=== PATIENT | female | born 1990 | race Caucasian/White ===

== ENCOUNTER 2017-02-21 16:04 | Emergency (ER) | payer MEDICAID ==
[~2017-02-21] VITALS: Ht 170.2 cm; Wt 56.5 kg
[2017-02-21 16:07] VITALS: Ht 170.2 cm; Wt 56.5 kg
[2017-02-21] MEDS ORDERED: ACETAMINOPHEN 500 MG TAB PO STA (17:31)
--- NOTE | 2017-02-21 18:08 | RADRPT ---
PROCEDURE: XR Chest. CLINICAL INDICATION: Chest pain. TECHNIQUE: Single frontal view. COMPARISON: None. FINDINGS: The lungs are clear. The heart size is normal. There is no pleural effusion. There is no pneumothorax. IMPRESSION: 1. Normal chest radiograph. RPTAT: QQ .Bib Blackburn MD, Date Time Electronically viewed and signed by .Bib Blackburn MD, on 02/21/2017 18:08 .R/
[2017-02-21 18:45] LABS: URINE BLOOD (Dip) POC Trace-intact (NEGATIVE)
[2017-02-21] MEDS ORDERED: IBUP-1542 PO (18:50)
--- NOTE | 2017-02-21 18:54 | ERD ---
ER Documentation Chief Complaint Date/Time DATE: 02/21/17 TIME: 18:52 Chief Complaint UPPER LT CHEST PAIN WITH LT ARM PAIN AND NUMBNESS HPI This 26-year-old female presents with multiple complaints. She complains of bitemporal headache, left upper chest pain as well as left arm numbness. She denies any shortness of breath or recent illness or fever. She denies any vomiting from her abdominal pain. ROS All systems reviewed and are negative except as per history of present illness. Medications Home Meds Active Scripts Ibuprofen* (Motrin*) 600 Mg Tab, 600 MG PO Q6, #20 TAB Prov:BARBARA ADDISON MD 02/21/17 Allergies Allergies: Coded Allergies: No Known Allergy (Unverified , 05/06/15) PMhx/Soc Medical and Surgical Hx: pt denies Medical Hx, pt denies Surgical Hx Hx Alcohol Use: No Hx Substance Use: No Hx Tobacco Use: No Smoking Status: Never smoker Physical Exam Vitals Vital Signs Date Time Temp Pulse Resp B/P Pulse Ox O2 Delivery O2 Flow Rate FiO2 02/21/17 16:07 99.1 72 16 118/61 100 Physical Exam Const: []Alert, [id number] per Head: Atraumatic Eyes: Normal Conjunctiva ENT: Normal External Ears, Nose and Mouth. Neck: Full range of motion..~ No meningismus. Resp: Clear to auscultation bilaterally. Mild reproducible left upper chest wall pain for Cardio: Regular rate and rhythm, no murmurs Abd: Soft, non tender, non distended. Normal bowel sounds Skin: No petechiae or rashes Back: No midline or flank tenderness Ext: No cyanosis, or edema. No calf swelling or Homans sign per Neur: Awake and alert Psych: Normal Mood and Affect Results 24 hrs Current Medications Medications (Trade) Dose Ordered Sig/Kemal Route PRN Reason Start Time Stop Time Status Last Admin Dose Admin Acetaminophen (Tylenol Tab) 500 mg ONCE STAT PO 02/21/17 17:31 02/21/17 17:34 DC 02/21/17 18:41 Procedures/MDM Chest X-ray 1V Interpreted by me: Soft Tissue: No acute abnormalities Bones: No acute abnormalities Mediastinum/Cardiac Silhouette/Lungs: [No acute abnormalities]. Impression- normal 1 view chest X EKG: Rate/Rhythm: [Normal Sinus Rhythm] rate equals 60 QRS, ST, T-waves: [No changes consistent w/ acute ischemia] Impression: [No evidence of ischemia or arrhythmia]. Impression have a normal EKG HCG is negative. Urine shows no acute abnormalities. Patient presents with left upper chest wall pain, left arm pain and numbness and bitemporal headache. Patient is well-appearing. Patient is PERC negative clinical GESTAULT do not suggest patient does not have cardiac chest pain signs or symptoms to warrant further testing. Patient was discharged home with ibuprofen and primary care follow-up and return precautions. The patient was stable with no new complaints during the ER course. Clinically, there is no current evidence to suggest meningitis, sepsis, acute abdomen, pneumonia, acute coronary syndrome, pulmonary embolism, or any other emergent condition appearing to require further evaluation or hospitalization. The patient should certainly return for any new or worsening symptoms per the aftercare instructions. They should otherwise follow-up with her primary care doctor for reevaluation this week. Departure Diagnosis: Primary Impression: Headache Headache type: unspecified Headache chronicity pattern: unspecified pattern Intractability: not intractable Qualified Code: R51 - Nonintractable headache, unspecified chronicity pattern, unspecified headache type Additional Impression: Chest pain Chest pain type: unspecified Qualified Code: R07.9 - Chest pain, unspecified type Condition: Stable Patient Instructions: Self-Care for Headaches, Chest Pain, Uncertain Cause Additional Instructions: Examines normal hoy. Cheque otro vez con selby doctor primario en el proximo thomas or regresa para mas o nueva simptomas. BARBARA ADDISON MD Feb 21, 2017 18:54
[2017-02-21 19:10] VITALS: BP 122/70; PULSE 77; RESP 18; TEMP 98.2
== END 2017-02-21 19:12 | disposition home or self-care (01) ==
LOC: FTE 16:04
DX: R51 Headache (principal)
CPT/HCPCS: 71010; 81003; 93005; Z7502; Z7610

== ENCOUNTER 2019-02-08 21:07 | Emergency (ER) | payer MEDICAID ==
[~2019-02-08] VITALS: Ht 162.6 cm; Wt 62.3 kg
[~2019-02-08 21:07] MED LIST: CEFD300C2 PO; CEPH-443 PO; IBUP-1542 PO; NPH10OT BOTH EARS; PHEN-537 PO
[2019-02-08 21:10] VITALS: Ht 162.6 cm; Wt 62.3 kg
[2019-02-08 23:48] VITALS: BP 110/70; PULSE 74; RESP 17
== END 2019-02-08 23:48 | disposition home or self-care (01) ==
LOC: FTE 21:07
DX: H66.93 Otitis media, unspecified, bilateral (principal); H60.93 Unspecified otitis externa, bilateral
CPT/HCPCS: 99283